=== PATIENT | male | born 1955 | race Caucasian/White ===

== ENCOUNTER 2016-12-11 09:51 | Day surgery (SDC) | payer MEDICAID ==
[2016-12-09 14:27] VITALS: BMI 33.3
[~2016-12-11 09:51] MED LIST: LACTATED RINGERS 1,000 ML IV SCH
[2016-12-11 10:46] VITALS: TEMP 98.1
[2016-12-11] MEDS ORDERED: LIDOCAINE 1% 20 ML VIAL (10MG/ML) FOR IV START INTRADERMA ONE (10:56)
[2016-12-11] MEDS ORDERED: PROPOFOL 10 MG/ML 20 ML VIAL IV ONE (11:14)
--- NOTE | 2016-12-11 11:36 | P.GSHP ---
History of Present Illness H&P Date: 12/11/16 Chief Complaint: Colon cancer screening Patient today for colonoscopy. His last one was approximately 10 years ago. No rectal bleeding or melena. No family history of colon cancer. Past Medical History Past Medical History: No Reported History History of Any Multi-Drug Resistant Organisms: None Reported Additional Past Surgical History / Comment(s): Had surgery at 2 yrs old because he swallowed a robertson. Past Anesthesia/Blood Transfusion Reactions: No Reported Reaction Past Psychological History: No Psychological Hx Reported Smoking Status: Former smoker Past Alcohol Use History: Occasional Additional Past Alcohol Use History / Comment(s): Smoked <1PPD for 10-15 yrs, quit 20 yrs ago. Past Drug Use History: None Reported - Past Family History Mother Additional Family Medical History / Comment(s): Heart Disease Father Additional Family Medical History / Comment(s): Heart Disease Medications and Allergies Home Medications Medication Instructions Recorded Confirmed Type Aspirin [Adult Low Dose Aspirin EC] 81 mg PO DAILY 12/09/16 12/11/16 History Allergies Allergy/AdvReac Type Severity Reaction Status Date / Time No Known Allergies Allergy Verified 12/11/16 10:41 Surgical - Exam Vital Signs Temp Pulse Resp BP Pulse Ox 98.1 F 59 L 16 154/90 98 12/11/16 10:37 12/11/16 10:37 12/11/16 10:37 12/11/16 10:37 12/11/16 10:37 Physical exam: General: Well-developed, well-nourished HEENT: Normocephalic, sclerae nonicteric Abdomen: Nontender, nondistended Extremities: No edema Neuro: Alert and oriented Assessment and Plan (1) Colon cancer screening Narrative/Plan: Will proceed with colonoscopy at this time. Status: Acute
--- NOTE | 2016-12-11 11:37 | P.PCN ---
Date of Procedure: 12/11/16 Procedure(s) Performed: PREOPERATIVE DIAGNOSIS: Colon cancer screening POSTOPERATIVE DIAGNOSIS: Normal PROCEDURE: Colonoscopy ANESTHESIA: MAC SURGEON: Abraham Paredes M.D. SPECIMENS: None ENDOSCOPIC PROCEDURE: The patient was placed on the endoscopy table in the left decubitus position. The Olympus colonoscope was inserted into the anus and passed under direct visualization to the base of the cecum. The appendiceal orifice was visualized. From that point the scope was slowly withdrawn inspecting all surfaces carefully. There were no neoplastic inflammatory or polypoid lesions throughout the cecum, ascending, transverse, descending, sigmoid and rectum. There was no diverticulosis noted. Digital rectal examination was normal. The patient was taken to the recovery room in stable condition per anesthesia guidelines. RECOMMENDATIONS: Increase fiber. Follow colonoscopy in 10 years.
[2016-12-11 12:17] VITALS: BP 116/70; PULSE 49; RESP 16
== END 2016-12-11 12:31 | disposition home or self-care (01) ==
LOC: ORWHC2ENDO 09:51
PROVIDERS: ATTEND Surgery
DX: Z12.11 Encounter for screening for malignant neoplasm of colon (principal); E66.9 Obesity, unspecified; Z68.33 Body mass index [BMI] 33.0-33.9, adult; Z79.82 Long term (current) use of aspirin; Z87.891 Personal history of nicotine dependence

== ENCOUNTER → 2017-10-30 | Outpatient (CLI) | payer MEDICAID ==
[2017-10-30 07:54] LABS: HCT 51.7 % (39.0-53.0); HGB 16.7 gm/dL (13.0-17.5); MCH 29.2 pg (25.0-35.0); MCHC 32.2 g/dL (31.0-37.0); MCV 90.7 fL (80.0-100.0); Mean Platelet Volume 7.1; Platelet Count 271 k/uL (150-450); RDW 12.8 % (11.5-15.5); WBC 5.2 k/uL (3.8-10.6)
[2017-10-30 07:57] LABS: Appearance,Urine Clear (Clear); Bilirubin,Urine Negative (Negative); Blood,Urine Negative (Negative); Color,Urine Yellow; Glucose,Urine (UA) Negative (Negative); Ketones,Urine Negative (Negative); Leukocyte Esterase,Urine Negative (Negative); Nitrite,Urine Negative (Negative); Protein,Urine Negative (Negative); Urobilinogen,Urine <2.0 mg/dL (<2.0)
[2017-10-30 09:55] LABS: ALT 28 U/L (21-72); AST 31 U/L (17-59); Albumin 4.4 g/dL (3.5-5.0); Alkaline Phosphatase 82 U/L (38-126); Anion Gap 10 mmol/L; Blood Urea Nitrogen 22 mg/dL (9-20); Calcium 9.8 mg/dL (8.4-10.2); Carbon Dioxide 31 mmol/L (22-30); Chloride 103 mmol/L (98-107); Cholesterol 233 mg/dL (<200); Glucose 98 mg/dL (74-99); HDL Cholesterol 64 mg/dL (40-60); LDL Cholesterol,Calculated 155 mg/dL (0-99); Potassium 4.8 mmol/L (3.5-5.1); Sodium 144 mmol/L (137-145); Total Bilirubin 0.5 mg/dL (0.2-1.3); Total Protein 7.3 g/dL (6.3-8.2); Triglycerides 68 mg/dL (<150)
[2017-10-30 10:25] LABS: Prostate Specific Antigen 1.67 ng/mL (0.00-4.00)
== END | disposition home or self-care (01) ==
LOC: LABWHC1 07:18
PROVIDERS: ATTEND Family Medicine
DX: Z00.01 Encounter for general adult medical examination with abnormal findings (principal)
CPT/HCPCS: 36415; 80053; 80061; 81003; 84153; 85027

== ENCOUNTER 2018-09-07 16:15 | Inpatient (IN) | payer MEDICAID ==
[2018-09-07] MEDS ORDERED: MORPHINE SULFATE 2 MG/ML SYRINGE IVP PRN (16:59)
--- NOTE | 2018-09-07 16:59 | ED ---
General Adult HPI - General Chief complaint: Extremity Injury, Upper Stated complaint: Fall Source: patient Mode of arrival: ambulatory Limitations: no limitations - History of Present Illness Initial comments: Dictation was produced using [employer] dictation software. please excuse any grammatical, word or spelling errors. Chief Complaint: 62-year-old male presents with left-sided chest pain. History of Present Illness: Patient is a 62-year-old male with left- sided chest pain. Patient was on a ladder pain upper repeat in time for the when his ladder began to topple. Patient states that the ladder fell sideways onto the ground. He fell onto his left side contusing his left upper arm and left lateral chest. Patient stood up immediately. He did suffer some abrasions to his left chest. Patient got up immediately and was brought to the emergency department. Patient has significant tenderness to his left lateral chest. Pain is exacerbated with inspiration and palpation to the left lateral chest. Patient denies any abdominal pain. Patient takes aspirin however doesn't take any other medications. Denies any ALLERGIES. He denies any abdominal pain. The ROS documented in this emergency department record has been reviewed and confirmed by me. Those systems with pertinent positive or negative responses have been documented in the HPI. All other systems are other negative and/or noncontributory. - Related Data Home Medications Medication Instructions Recorded Confirmed Aspirin [Adult Low Dose Aspirin EC] 81 mg PO DAILY 12/09/16 09/07/18 Allergies Allergy/AdvReac Type Severity Reaction Status Date / Time No Known Allergies Allergy Verified 09/07/18 16:38 Review of Systems ROS Statement: Those systems with pertinent positive or pertinent negative responses have been documented in the HPI. ROS Other: All systems not noted in ROS Statement are negative. Past Medical History Past Medical History: No Reported History History of Any Multi-Drug Resistant Organisms: None Reported Additional Past Surgical History / Comment(s): Had surgery at 2 yrs old because he swallowed a robertson. Past Anesthesia/Blood Transfusion Reactions: No Reported Reaction Past Psychological History: No Psychological Hx Reported Smoking Status: Former smoker Past Alcohol Use History: Occasional Past Drug Use History: None Reported - Past Family History Mother Additional Family Medical History / Comment(s): Heart Disease Father Additional Family Medical History / Comment(s): Heart Disease General Exam - General Exam Comments Initial Comments: PHYSICAL EXAM: General Impression: Alert and oriented x3, not in acute distress HEENT: Normocephalic atraumatic, extra-ocular movements intact, pupils equal and reactive to light bilaterally, mucous membranes moist. Cardiovascular: Heart regular rate and rhythm, S1&S2 audible, no murmurs, rubs or gallops Chest: Bilateral breath sounds, abrasion to the left lateral chest Abdomen: Bowel sounds present, abdomen soft, non-tender, non-distended, no organomegaly Musculoskeletal: Pulses present and equal in all extremities, no peripheral edema Motor: Power 5/5 bilaterally, no focal deficits noted Neurological: CN II-XII grossly intact, no focal motor or sensory deficits noted Skin: Half a centimeter superficial abrasion to the left finger Psych: Normal affect and mood Limitations: no limitations Course Vital Signs 09/07/18 09/07/18 16:16 18:42 Temperature 97.4 F L Pulse Rate 59 L 84 Respiratory 18 24 Rate Blood Pressure 154/96 144/108 O2 Sat by Pulse 99 Oximetry Medical Decision Making - Medical Decision Making ED course: 62-year-old male with severe left upper arm and left chest contusion status post fall off ladder. The ladder was allegedly approximately 4 feet. Vital signs upon arrival shows findings within acceptable limits. There is strong clinical concern of left rib fractures.There is strong clinical suspicion of traumatic thoracic injury. Laboratory evaluation obtained. CBC unremarkable, coag panel pending. Metabolic panel negative, urinalysis negative. Chest x-ray was obtained demonstrating rib fractures however no pneumothorax or effusion noted initially. Computed tomography scan of the chest abdomen and pelvis was obtained showing multiple comminuted left-sided rib fractures with flail chest. There is mild hemothorax. Hemothorax measures approximately 25%. Much medical injury identified below the diaphragm. Discussed patient case with trauma surgeon who requests the patient be put intensive care unit. Discussed patient case with network desktop support specialist who is willing to accept the patient to the ICU. Discussed patient case with cardiothoracic who is aware of patient. None of the consultants recommend putting a chest tube at this time. Patient given lidocaine patch and given IV analgesia. Anesthesia to be consulted for possible rib block. - Lab Data Result diagrams: 09/07/18 17:20 09/07/18 17:20 Lab Results 09/07/18 09/07/18 09/07/18 Range/Units 17:20 17:20 17:20 WBC 8.6 (3.8-10.6) k/uL RBC 5.42 (4.30-5.90) m/uL Hgb 15.2 (13.0-17.5) gm/dL Hct 47.9 (39.0-53.0) % MCV 88.4 (80.0-100.0) fL MCH 28.1 (25.0-35.0) pg MCHC 31.7 (31.0-37.0) g/dL RDW 12.3 (11.5-15.5) % Plt Count 319 (150-450) k/uL Neutrophils % 71 % Lymphocytes % 21 % Monocytes % 5 % Eosinophils % 1 % Basophils % 0 % Neutrophils # 6.1 (1.3-7.7) k/uL Lymphocytes # 1.8 (1.0-4.8) k/uL Monocytes # 0.5 (0-1.0) k/uL Eosinophils # 0.1 (0-0.7) k/uL Basophils # 0.0 (0-0.2) k/uL Sodium 140 (137-145) mmol/L Potassium 4.7 (3.5-5.1) mmol/L Chloride 103 (98-107) mmol/L Carbon Dioxide 29 (22-30) mmol/L Anion Gap 8 mmol/L BUN 18 (9-20) mg/dL Creatinine 0.82 (0.66-1.25) mg/dL Est GFR (CKD-EPI)AfAm >90 (>60 ml/min/1.73 sqM) Est GFR (CKD-EPI)NonAf >90 (>60 ml/min/1.73 sqM) Glucose 101 H (74-99) mg/dL Calcium 9.4 (8.4-10.2) mg/dL Urine Color Yellow Urine Appearance Clear (Clear) Urine pH 5.0 (5.0-8.0) Ur Specific [place] 1.019 (1.001-1.035) Urine Protein Negative (Negative) Urine Glucose (UA) Negative (Negative) Urine Ketones Negative (Negative) Urine Blood Negative (Negative) Urine Nitrite Negative (Negative) Urine Bilirubin Negative (Negative) Urine Urobilinogen <2.0 (<2.0) mg/dL Ur Leukocyte Esterase Negative (Negative) Disposition Clinical Impression: Rib fractures, Hemothorax Disposition: ADMITTED IP TO THIS HOSP Condition: Critical Referrals: Srinivasa Braden MD [Primary Care Provider] - 1-2 days Decision Time: 19:14
[2018-09-07] MEDS ORDERED: LIDOCAINE 5% PATCH TOPICAL STA (17:00)
--- NOTE | 2018-09-07 17:22 | XR ---
EXAMINATION TYPE: XR chest 1V DATE OF EXAM: 09/07/2018 COMPARISON: 06/22/2009 HISTORY: Left rib pain TECHNIQUE: Single frontal view of the chest is obtained. FINDINGS: Heart and mediastinum are within normal limits. Lungs are clear of infiltrate. There is slight increased density over the left lower lateral lung field consistent with new pleural thickening. There is fracture of the left sixth rib and probably the fifth rib. There are old right u pper posterior healed rib fractures. There is no sign of a pneumothorax. Trachea is midline. Costophr enic angles are clear. IMPRESSION: Left rib acute fractures. There is probably some pleural thickening also.
--- NOTE | 2018-09-07 17:24 | XR ---
EXAMINATION TYPE: XR humerus LT DATE OF EXAM: 09/07/2018 COMPARISON: NONE HISTORY: Arm pain. Fall. TECHNIQUE: 4 views FINDINGS: There is some spurring at the medial humeral condyle. I see no fracture nor dislocation. Sh oulder joint appears intact. IMPRESSION: No acute abnormality of the left humerus. No fracture seen.
[2018-09-07 18:23] LABS: Basophils % (A) 0 %; Eosinophils # (A) 0.1 k/uL (0-0.7); Eosinophils % (A) 1 %; HCT 47.9 % (39.0-53.0); HGB 15.2 gm/dL (13.0-17.5); Lymphocytes # (A) 1.8 k/uL (1.0-4.8); Lymphocytes % (A) 21 %; MCH 28.1 pg (25.0-35.0); MCHC 31.7 g/dL (31.0-37.0); MCV 88.4 fL (80.0-100.0); Monocytes # (A) 0.5 k/uL (0-1.0); Monocytes % (A) 5 %; Neutrophils # (A) 6.1 k/uL (1.3-7.7); Neutrophils % (A) 71 %; Platelet Count 319 k/uL (150-450); RBC 5.42 m/uL (4.30-5.90); RDW 12.3 % (11.5-15.5); WBC 8.6 k/uL (3.8-10.6)
[2018-09-07 18:34] LABS: Anion Gap 8 mmol/L; Blood Urea Nitrogen 18 mg/dL (9-20); Calcium 9.4 mg/dL (8.4-10.2); Carbon Dioxide 29 mmol/L (22-30); Chloride 103 mmol/L (98-107); Glucose 101 mg/dL (74-99); Potassium 4.7 mmol/L (3.5-5.1); Sodium 140 mmol/L (137-145)
[2018-09-07 18:49] LABS: Appearance,Urine Clear (Clear); Bilirubin,Urine Negative (Negative); Blood,Urine Negative (Negative); Color,Urine Yellow; Glucose,Urine (UA) Negative (Negative); Ketones,Urine Negative (Negative); Leukocyte Esterase,Urine Negative (Negative); Nitrite,Urine Negative (Negative); Protein,Urine Negative (Negative); Specific Gravity,Urine 1.019 (1.001-1.035); Urobilinogen,Urine <2.0 mg/dL (<2.0)
--- NOTE | 2018-09-07 19:01 | CT ---
EXAMINATION TYPE: CT ChestAbdPelvis w con DATE OF EXAM: 09/07/2018 COMPARISON: Chest pain. Fall. HISTORY: pt fall, lt side landing on ladder CT DLP: 1085.7 mGycm Automated exposure control for dose reduction was used. CONTRAST: CT scan of the chest, abdomen and pelvis is performed without Oral Contrast and with IV Contrast, pat ient injected with 100 mL of Isovue 300. FINDINGS: There is left pleural effusion. There is soft tissue air around the left posterior lateral chest wall . There are fractures of the posterior left side 9 and 8 and 7 and 6 ribs. I see no pneumothorax. The re is tiny amount of soft tissue air associated with the rib fractures. This appears outside of the p arietal pleura. Fractures are mostly comminuted. Ribs are broken more than one place and consistent w ith flail chest. There is also fractures of the left lateral fourth fifth sixth ribs. The thoracic sp ine is intact. I see no compression fracture. Trachea is midline. Thoracic aorta appears intact witho ut evidence of aneurysm or dissection. There are no hilar masses. There is no mediastinal adenopathy. There is 1.5 cm cyst in the left lobe of the liver. Gallbladder appears normal. Bile ducts are not di lated. The spleen appears intact. There is no evidence of pancreatic mass. There is no adrenal mass. Kidneys show satisfactory contrast opacification. There is no hydronephrosi s. Bladder distends smoothly. There is prosthetic calcification. There is no inguinal hernia. There i s no free fluid in the pelvis. Appendix appears normal. I see no intestinal wall thickening. There ar e no dilated loops. There is no mesenteric edema. There are a few mesenteric lymph nodes that measure up to 1 cm. Lumbar spine is intact. Bony pelvis is intact. IMPRESSION: Multiple comminuted left-sided rib fractures consistent with flail chest. Mild hemothorax . Soft tissue air outside of the pleura consistent with a laceration. No pneumothorax seen. Hemothora x is approximate 25%. No evidence of traumatic injury below the diaphragm. This exam was discussed [facility] ER physician at 7:00 PM.
[2018-09-07] MEDS ORDERED: ACETAMINOPHEN TAB 325 MG TAB PO PRN (19:09)
[2018-09-07] MEDS ORDERED: MORPHINE SULFATE 4 MG/ML SYRINGE IV PRN (19:09)
[2018-09-07] MEDS ORDERED: NALOXONE 0.4 MG/ML 1 ML VIAL IV PRN (19:09)
[2018-09-07] MEDS ORDERED: SODIUM CHLORIDE 0.9% 1,000 ML IV STA (19:20)
[2018-09-07] MEDS: SODIUM CHLORIDE 0.9% 1,000 ML IV SCH (19:32)
--- NOTE | 2018-09-07 20:55 | XR ---
EXAMINATION TYPE: XR chest 1V DATE OF EXAM: 09/07/2018 COMPARISON: Today HISTORY: Chest pain TECHNIQUE: Single frontal view of the chest is obtained. FINDINGS: There is some mild infiltrate in the left lower lobe. There is no heart failure. Heart siz e is fairly normal. There are chest leads. IMPRESSION: Increasing left lower lobe mild infiltrate compared to exam earlier today 2 hours ago.
[2018-09-07] MEDS: HYDROcodone/APAP 5-325MG 1 EACH TAB PO PRN (20:59)
[2018-09-07 22:10] LABS: Glucose,Whole Blood 121 mg/dL (75-99)
[2018-09-07 22:35] VITALS: BMI 32.7
[2018-09-07] MEDS: FAMOTIDINE 20 MG/2 ML VIAL IV SCH (22:43)
[2018-09-08] MEDS: HYDROcodone/APAP 5-325MG 1 EACH TAB PO PRN ×5 (00:51→23:31)
[2018-09-08] MEDS: SODIUM CHLORIDE 0.9% 1,000 ML IV SCH ×3 (04:57→23:35)
[2018-09-08 05:44] LABS: Basophils % (A) 0 %; Eosinophils % (A) 0 %; HCT 40.9 % (39.0-53.0); HGB 13.2 gm/dL (13.0-17.5); Lymphocytes # (A) 1.6 k/uL (1.0-4.8); Lymphocytes % (A) 18 %; MCH 29.1 pg (25.0-35.0); MCHC 32.4 g/dL (31.0-37.0); MCV 89.7 fL (80.0-100.0); Mean Platelet Volume 7.1; Monocytes # (A) 0.7 k/uL (0-1.0); Monocytes % (A) 8 %; Neutrophils # (A) 6.4 k/uL (1.3-7.7); Neutrophils % (A) 72 %; Platelet Count 276 k/uL (150-450); RBC 4.56 m/uL (4.30-5.90); RDW 12.3 % (11.5-15.5); WBC 8.8 k/uL (3.8-10.6)
[2018-09-08 06:02] LABS: Anion Gap 7 mmol/L; Blood Urea Nitrogen 21 mg/dL (9-20); Calcium 8.4 mg/dL (8.4-10.2); Carbon Dioxide 26 mmol/L (22-30); Chloride 105 mmol/L (98-107); Glucose 112 mg/dL (74-99); Phosphorus 4.7 mg/dL (2.5-4.5); Potassium 4.8 mmol/L (3.5-5.1); Sodium 138 mmol/L (137-145)
--- NOTE | 2018-09-08 08:26 | XR ---
EXAMINATION TYPE: XR chest 1V DATE OF EXAM: 09/08/2018 COMPARISON: 09/07/2018 HISTORY: Pain TECHNIQUE: Single frontal view of the chest is obtained. FINDINGS: Chronic rib cage deformities noted bilaterally. There are small bilateral effusions greate r on the left is a less than percent pneumothorax stable. IMPRESSION: 1. Less than 5% left apical pneumothorax with left-sided consolidation and pleural effusion. Recently noted rib fractures are again seen.
[2018-09-08] MEDS: FAMOTIDINE 20 MG/2 ML VIAL IV SCH (08:53)
--- NOTE | 2018-09-08 09:54 | P.GSCN ---
History of Present Illness Consult date: 09/08/18 Reason for Consult: Left-sided rib fractures, possible flail chest, surgical recommendations. Requesting physician: Mat Puente History of present illness: This is a 62-year-old active gentleman who follows with Dr. Ruel Braden on an outpatient basis. He has no significant previous medical history except former tobacco dependence and family history of heart disease. Apparently he had been up on a ladder hanging [place] lights when he fell approximately 4 feet off the ground onto his left side. He denies hitting his head and was able to stand up immediately. He complained of pain to his left arm and left lateral chest wall with no other complaints. He reported to the emergency room where a chest x-ray was completed demonstrating left acute rib fractures with pleural thickening. CT of the chest, abdomen and pelvis was completed as well demonstrating comminuted fractures of the posterior left sided 6 through ninth ribs and fourth through sixth left lateral ribs, as well as 25% hemothorax. Per the radiologist read his ribs were fractured in more than one place which they felt was consistent with flail chest. In addition he had a humerus x-ray which demonstrated no fracture. The patient was admitted to the intensive care unit for close monitoring and treatment. Dr. Hayes from cardiothoracic surgery was consulted regarding the patient's rib fractures and treatment of possible flail chest. Review of Systems Review of systems was completed and was negative except as noted. Rates pain at a 3/10 without movement, with deep inspiration or movement pain is slightly worse but well controlled with current medication regimen. - Cardiovascular Cardiovascular Comment(s): Left lateral chest pain is worse with deep inspiration. Reports as per HPI, Reports chest pain Past Medical History Past Medical History: No Reported History History of Any Multi-Drug Resistant Organisms: None Reported Additional Past Surgical History / Comment(s): Had surgery at 2 yrs old because he swallowed a robertson. Past Anesthesia/Blood Transfusion Reactions: No Reported Reaction Past Psychological History: No Psychological Hx Reported Smoking Status: Former smoker Past Alcohol Use History: Occasional Additional Past Alcohol Use History / Comment(s): Smoked <1PPD for 10-15 yrs, quit 20 yrs ago. Past Drug Use History: None Reported - Past Family History Mother Additional Family Medical History / Comment(s): Heart Disease Father Additional Family Medical History / Comment(s): Heart Disease Medications and Allergies Home Medications Medication Instructions Recorded Confirmed Type Aspirin [Adult Low Dose Aspirin EC] 81 mg PO DAILY 12/09/16 09/07/18 History Allergies Allergy/AdvReac Type Severity Reaction Status Date / Time No Known Allergies Allergy Verified 09/07/18 16:38 Surgical - Exam Vital Signs Temp Pulse Resp BP 97.4 F L 59 L 18 154/96 09/07/18 16:16 09/07/18 16:16 09/07/18 16:16 09/07/18 16:16 - General well developed, well nourished, no distress - Eyes PERRL, normal ocular movement - ENT no hearing loss - Neck no masses, no bruits - Respiratory Lungs sounds clear bilaterally but slightly diminished on the left side. Respirations even, nonlabored. Currently on 2 L nasal cannula oxygen saturation 97%. Able to achieve 1000 mL on his incentive spirometry. Left chest wall does appear slightly swollen. There is no paradoxical movement of the chest with inspiration or coughing. - Cardiovascular S1, S2 present. Regular rate and rhythm, sinus rhythm on telemetry. Palpable peripheral pulses bilaterally. No extremity edema present. No calf pain or tenderness noted. - Abdomen Abdomen: soft, non tender, bowel sounds - Genitourinary Deferred - Rectum Deferred - Integumentary Abrasions present to the left chest. no rash, no growths - Neurologic normal coordination, normal sensation - Psychiatric oriented to time, oriented to person, oriented to place, speech is normal, memory intact Results - Labs 09/08/18 04:57 09/08/18 04:57 Abnormal Lab Results - Last 24 Hours (Table) 09/07/18 09/07/18 09/08/18 Range/Units 17:20 21:58 04:57 BUN 21 H (9-20) mg/dL Glucose 101 H 112 H (74-99) mg/dL POC Glucose (mg/dL) 121 H (75-99) mg/dL Phosphorus 4.7 H (2.5-4.5) mg/dL Diabetes panel 09/07/18 09/08/18 Range/Units 17:20 04:57 Sodium 140 138 (137-145) mmol/L Potassium 4.7 4.8 (3.5-5.1) mmol/L Chloride 103 105 (98-107) mmol/L Carbon Dioxide 29 26 (22-30) mmol/L BUN 18 21 H (9-20) mg/dL Creatinine 0.82 0.73 (0.66-1.25) mg/dL Glucose 101 H 112 H (74-99) mg/dL Calcium 9.4 8.4 (8.4-10.2) mg/dL Calcium panel 09/07/18 09/08/18 Range/Units 17:20 04:57 Calcium 9.4 8.4 (8.4-10.2) mg/dL Phosphorus 4.7 H (2.5-4.5) mg/dL Pituitary panel 09/07/18 09/08/18 Range/Units 17:20 04:57 Sodium 140 138 (137-145) mmol/L Potassium 4.7 4.8 (3.5-5.1) mmol/L Chloride 103 105 (98-107) mmol/L Carbon Dioxide 29 26 (22-30) mmol/L BUN 18 21 H (9-20) mg/dL Creatinine 0.82 0.73 (0.66-1.25) mg/dL Glucose 101 H 112 H (74-99) mg/dL Calcium 9.4 8.4 (8.4-10.2) mg/dL Adrenal panel 09/07/18 09/08/18 Range/Units 17:20 04:57 Sodium 140 138 (137-145) mmol/L Potassium 4.7 4.8 (3.5-5.1) mmol/L Chloride 103 105 (98-107) mmol/L Carbon Dioxide 29 26 (22-30) mmol/L BUN 18 21 H (9-20) mg/dL Creatinine 0.82 0.73 (0.66-1.25) mg/dL Glucose 101 H 112 H (74-99) mg/dL Calcium 9.4 8.4 (8.4-10.2) mg/dL - Imaging Chest x-ray: report reviewed, image reviewed CT scan - chest: report reviewed, image reviewed Assessment and Plan (1) Tobacco dependence in remission Current Visit: No Status: Resolved Code(s): F17.201 - NICOTINE DEPENDENCE, UNSPECIFIED, IN REMISSION SNOMED Code(s): 821809314 (2) Hemothorax Current Visit: Yes Status: Acute Code(s): J94.2 - HEMOTHORAX SNOMED Code(s ): 56006564 (3) Rib fractures Current Visit: Yes Status: Acute Code(s): S22.39XA - FRACTURE OF ONE RIB, UNSP SIDE, INIT FOR CLOS FX SNOMED Code(s): 42212014 Plan: The patient was seen and examined at the bedside with Dr. Nguyen. Chart/ diagnostics were reviewed. At this point the patient is in no distress, his respirations are even and nonlabored, he is achieving 1000 mL on his incentive spirometry and his oxygen saturation is in the high 90s on 2 L nasal cannula. He states his pain is well controlled with current medication regimen. There is no paradoxical movement of the chest wall. His trachea is midline. He does have slight edema to the left chest wall which should be monitored. We have asked radiology to add rib reconstruction to his CT scan. At this time no surgical intervention is warranted. The patient may be transferred out of the ICU from our standpoint. Pain control per primary care service/trauma service. Encourage incentive spirometry 10 times every hour while awake. More recommendations to follow based on patient's progress and symptomatology as well as rib reconstruction on CT scan. Thank you for this consult. We will continue to follow with you. Time with Patient: Greater than 30
--- NOTE | 2018-09-08 11:52 | P.CNPUL ---
History of Present Illness Consult date: 09/08/18 Reason for consult: chest pain History of present illness: 3-year-old male patient is well-known to me as the patient works as a x-ray tech here in the hospital. The patient was installing some light on a ladder and he fell and he landed on his left side and chest. He did not lose any consciousness. No dizziness. No altered mentation. No trauma to the head. He presented emergency department and a chest x-ray showed left-sided rib fractures in addition to left pleural thickening and effusion. CAT scan of the chest abdomen and pelvis was done and showed a comminuted fracture of the posterior left sided ribs 6 through ninth rib and there was also fractured within the fourth and the sixth rib laterally in addition to a very small left- sided pleural effusion probably hemothorax. No evidence of any pneumothorax. No abdominal findings on the CAT scan of the abdomen and pelvis. The patient is currently in intensive care unit. The patient using incentive spirometer. Pain scale is 3/10 and the patient is well-controlled on [place] orally. He is using incentive spirometer. No hemoptysis. No pleurisy. There is a large bruise in his obtain interstitial over the left lateral chest area extending posteriorly inside of the trauma along with some swelling. Family is at the bedside. He has no complaints. Review of Systems Constitutional: Denies chills, Denies fever Eyes: denies blurred vision, denies bulging eye, denies decreased vision Ears: deny: decreased hearing, ear discharge, earache, tinnitus Ears, nose, mouth and throat: Reports as per HPI Cardiovascular: Reports chest pain Respiratory: Reports dyspnea Gastrointestinal: Denies abdominal pain, Denies diarrhea, Denies nausea, Denies vomiting Genitourinary: Reports as per HPI Musculoskeletal: Reports as per HPI Musculoskeletal: absent: ankle pain, ankle stiffness, ankle swelling Integumentary: Denies pruritus, Denies rash Neurological: Reports as per HPI Psychiatric: Reports as per HPI Endocrine: Reports as per HPI Hematologic/Lymphatic: Reports as per HPI Allergic/Immunologic: Reports as per HPI Past Medical History Past Medical History: No Reported History History of Any Multi-Drug Resistant Organisms: None Reported Additional Past Surgical History / Comment(s): Had surgery at 2 yrs old because he swallowed a robertson. Past Anesthesia/Blood Transfusion Reactions: No Reported Reaction Past Psychological History: No Psychological Hx Reported Smoking Status: Former smoker Past Alcohol Use History: Occasional Additional Past Alcohol Use History / Comment(s): Smoked <1PPD for 10-15 yrs, quit 20 yrs ago. Past Drug Use History: None Reported - Past Family History Mother Additional Family Medical History / Comment(s): Heart Disease Father Additional Family Medical History / Comment(s): Heart Disease Medications and Allergies Home Medications Medication Instructions Recorded Confirmed Type Aspirin [Adult Low Dose Aspirin EC] 81 mg PO DAILY 12/09/16 09/07/18 History Allergies Allergy/AdvReac Type Severity Reaction Status Date / Time No Known Allergies Allergy Verified 09/07/18 16:38 Physical Exam Vitals: Vital Signs Temp Pulse Resp BP Pulse Ox 09/08/18 11:00 59 L 18 109/70 97 09/08/18 10:00 56 L 16 121/72 96 09/08/18 09:00 97.9 F 58 L 22 135/79 96 09/08/18 08:00 65 18 114/72 98 09/08/18 07:00 53 L 12 115/67 95 09/08/18 06:00 64 22 134/90 96 09/08/18 05:00 64 14 100/66 97 09/08/18 04:00 97.6 F 55 L 13 100/65 96 09/08/18 03:00 56 L 13 103/68 97 09/08/18 02:00 57 L 13 111/74 95 09/08/18 01:00 60 18 114/74 96 09/08/18 00:30 61 14 114/74 95 09/08/18 00:00 98.4 F 61 16 115/80 95 09/07/18 23:30 68 23 115/80 95 09/07/18 23:00 66 18 140/70 96 09/07/18 22:30 70 19 140/70 96 09/07/18 22:10 98.0 F 77 20 140/70 94 L 09/07/18 21:34 98.1 F 84 18 130/88 97 09/07/18 21:02 19 09/07/18 20:30 84 19 127/88 97 09/07/18 19:47 75 19 122/83 97 09/07/18 19:14 86 21 98/92 97 09/07/18 18:42 84 24 144/108 99 09/07/18 16:16 97.4 F L 59 L 18 154/96 Intake and Output 09/07/18 09/08/18 09/08/18 22:59 06:59 14:59 Intake Total 920 575 Output Total 0 300 175 Balance 0 620 400 Intake: IV 920 575 Sodium Chloride 0.9% 1, 920 575 000 ml @ 115 mls/hr IV . Q8H42M [facility] Rx#:[id number] Output: Urine 0 300 175 Other: Weight 91.9 kg 91.9 kg 91.9 kg General well developed, well nourished, no distress - Eyes PERRL, normal ocular movement - ENT no hearing loss - Neck no masses, no bruits - Respiratory Lungs sounds clear bilaterally but slightly diminished on the left side. Respirations even, nonlabored. Currently on 2 L nasal cannula oxygen saturation 97%. Able to achieve 1000 mL on his incentive spirometry. Left chest wall does appear slightly swollen. There is no paradoxical movement of the chest with inspiration or coughing. - Cardiovascular S1, S2 present. Regular rate and rhythm, sinus rhythm on telemetry. Palpable peripheral pulses bilaterally. No extremity edema present. No calf pain or tenderness noted. - Abdomen Abdomen: soft, non tender, bowel sounds - Genitourinary Deferred - Rectum Deferred - Integumentary Abrasions present to the left chest. There is also subcutaneous hematoma and swelling no rash, no growths - Neurologic normal coordination, normal sensation Results - Laboratory Findings CBC and BMP: 09/08/18 04:57 09/08/18 04:57 Abnormal lab findings: Abnormal Labs 09/07/18 09/07/18 09/08/18 17:20 21:58 04:57 BUN 21 H Glucose 101 H 112 H POC Glucose (mg/dL) 121 H Phosphorus 4.7 H - Diagnostic Findings Chest x-ray: image reviewed CT scan - chest: image reviewed Assessment and Plan Plan: Assessment 1 traumatic left-sided rib fractures, secondary to a fall 2 traumatic small left-sided hemothorax 3 chest wall pain secondary to above 4 acute hypoxic respiratory failure secondary to above Plan The patient was seen and examined. He is doing well. Pain is under good control. He is on [place] for pain control. Continue using the incentive spirometer. Daily chest x-rays. No need for any chest tube insertion for any immediate surgical intervention at this point in time. His chest is not flaking. He is doing well. He is hemodynamically stable. We'll continue to follow.
--- NOTE | 2018-09-08 14:04 | P.GSHP ---
History of Present Illness H&P Date: 09/08/18 62-year-old male who presented to the emergency room on the day of the event when patient reportedly fell from a ladder approximately 4 feet off the ground landing on his left side. Patient denies losing consciousness. Denies any numbness had. Stated he was able to stand up immediately after the incident. Did report noting having significant pain involving his left arm the left lateral chest wall. In the emergency room chest x-ray was completed did show left acute rib fracture with pleural thickening. CAT scan of the chest abdomen and pelvis was obtained. Reviewing the report showed comminuted fractures of the posterior left side sixth through ninth ribs, 4 through 6 rib left lateral with a 25% pneumothorax. The humerus x-ray showed no fracture. Radiology indicated the ribs were fractured in more than one place which would be consistent with a flail chest patient has been followed by cardiovascular as well as pulmonary service. At the time of my examination the patient was sitting up in bed able to use the incentive spirometer can achieve the thousand 1500. Currently on room air with a sat of 94-91%. Patient is noted to have a large purple reddish ecchymotic bruise in the left lateral chest with with bruising to the left femoral area left posterior chest wall slightly swollen patient reports a sore the pain is tolerable No significant past medical history, no surgical history - Review of Systems Comment: Essentially unremarkable except as mentioned in the present illness Past Medical History Past Medical History: No Reported History History of Any Multi-Drug Resistant Organisms: None Reported Additional Past Surgical History / Comment(s): Had surgery at 2 yrs old because he swallowed a robertson. Past Anesthesia/Blood Transfusion Reactions: No Reported Reaction Past Psychological History: No Psychological Hx Reported Smoking Status: Former smoker Past Alcohol Use History: Occasional Additional Past Alcohol Use History / Comment(s): Smoked <1PPD for 10-15 yrs, quit 20 yrs ago. Past Drug Use History: None Reported - Past Family History Mother Additional Family Medical History / Comment(s): Heart Disease Father Additional Family Medical History / Comment(s): Heart Disease Medications and Allergies Home Medications Medication Instructions Recorded Confirmed Type Aspirin [Adult Low Dose Aspirin EC] 81 mg PO DAILY 12/09/16 09/07/18 History Allergies Allergy/AdvReac Type Severity Reaction Status Date / Time No Known Allergies Allergy Verified 09/07/18 16:38 Surgical - Exam Vital Signs Temp Pulse Resp BP 97.4 F L 59 L 18 154/96 09/07/18 16:16 09/07/18 16:16 09/07/18 16:16 09/07/18 16:16 GENERAL APPEARANCE: 62-year-old male patient is alert, oriented, in no acute distress. Sitting up in bed VITAL SIGNS: Reviewed HEENT: Head is normocephalic and atraumatic. Pupils are equal and reactive. The nares are patent. Oropharynx is clear without lesions. NECK: Supple without lymphadenopathy. Traches midline. HEART: S1, S2. Regular rate and rhythm. Chest left lateral chest wall moderate amount of bruising noted palpable firm swelling noted LUNGS: No crackles or wheezes are heard. Adequate air movement bilaterally on room air sats greater than 92% able to use the IS achieving 1000 ABDOMEN: Soft, nontender, nondistended with good bowel sounds. No peritoneal signs. No palpable organomegaly or masses. EXTREMITIES: Normal skin color and turgor. No cyanosis, rash, ulceration, clubbing or edema. Radial pedal pulses are 2/4 bilaterally. NEUROLOGICAL: No focal deficits. Strength and sensation are grossly intact. Results - Labs 09/08/18 04:57 09/08/18 04:57 Abnormal Lab Results - Last 24 Hours (Table) 09/07/18 09/07/18 09/08/18 Range/Units 17:20 21:58 04:57 BUN 21 H (9-20) mg/dL Glucose 101 H 112 H (74-99) mg/dL POC Glucose (mg/dL) 121 H (75-99) mg/dL Phosphorus 4.7 H (2.5-4.5) mg/dL Diabetes panel 09/07/18 09/08/18 Range/Units 17:20 04:57 Sodium 140 138 (137-145) mmol/L Potassium 4.7 4.8 (3.5-5.1) mmol/L Chloride 103 105 (98-107) mmol/L Carbon Dioxide 29 26 (22-30) mmol/L BUN 18 21 H (9-20) mg/dL Creatinine 0.82 0.73 (0.66-1.25) mg/dL Glucose 101 H 112 H (74-99) mg/dL Calcium 9.4 8.4 (8.4-10.2) mg/dL Calcium panel 09/07/18 09/08/18 Range/Units 17:20 04:57 Calcium 9.4 8.4 (8.4-10.2) mg/dL Phosphorus 4.7 H (2.5-4.5) mg/dL Pituitary panel 09/07/18 09/08/18 Range/Units 17:20 04:57 Sodium 140 138 (137-145) mmol/L Potassium 4.7 4.8 (3.5-5.1) mmol/L Chloride 103 105 (98-107) mmol/L Carbon Dioxide 29 26 (22-30) mmol/L BUN 18 21 H (9-20) mg/dL Creatinine 0.82 0.73 (0.66-1.25) mg/dL Glucose 101 H 112 H (74-99) mg/dL Calcium 9.4 8.4 (8.4-10.2) mg/dL Adrenal panel 09/07/18 09/08/18 Range/Units 17:20 04:57 Sodium 140 138 (137-145) mmol/L Potassium 4.7 4.8 (3.5-5.1) mmol/L Chloride 103 105 (98-107) mmol/L Carbon Dioxide 29 26 (22-30) mmol/L BUN 18 21 H (9-20) mg/dL Creatinine 0.82 0.73 (0.66-1.25) mg/dL Glucose 101 H 112 H (74-99) mg/dL Calcium 9.4 8.4 (8.4-10.2) mg/dL Assessment and Plan Assessment: Impression Status post fall from a ladder four feet off the ground landing on left side resulting in left acute rib fracture 6 through 9 rib with 4 through 6 on the left lateral rib with a 25% hemothorax Pneumothorax Traumatic left-sided rib fracture secondary to a fall with a left side small 25 % hemothorax Present on admission chest wall pain suspect due to traumatic fall from a ladder 4 feet Present on admission acute hypoxic respiratory failure suspect due to left- sided rib fracture with left side small hemothorax Plan Continue to monitor titrate the O2 keep sats greater than 90% Pain control DVT and GI prophylaxis continue recommendations by pulmonary no need for chest tube insertion or any immediate surgical intervention at this time Will follow with further recommendatios The above impression and plan of care have been discussed and directed by signing physician. Ivon Olguin nurse practitioner acting as scribe for signing physician.
[2018-09-08] MEDS: FAMOTIDINE 20 MG TAB PO SCH (19:32)
[2018-09-09] MEDS: HYDROcodone/APAP 5-325MG 1 EACH TAB PO PRN ×3 (03:27→08:07)
[2018-09-09 08:01] VITALS: BP 144/81; PULSE 68; RESP 16; TEMP 97.4
[2018-09-09] MEDS: FAMOTIDINE 20 MG TAB PO SCH (08:02)
--- NOTE | 2018-09-09 09:26 | XR ---
EXAMINATION TYPE: XR chest 1V portable DATE OF EXAM: 09/09/2018 COMPARISON: Chest x-ray 09/08/2018 HISTORY: Pneumothorax, rib fractures, trauma and pain TECHNIQUE: Single frontal view of the chest is obtained. FINDINGS: Persistent abnormal density in the left lung base. Left hemidiaphragm. Multiple left-sided rib fractures noted. No evident pneumothorax. 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 Patient is rotated which accentuates the heart size. IMPRESSION: Left effusion versus hemothorax with multiple left rib fractures.
[2018-09-09] MEDS ORDERED: HYDROcodone/APAP 5-325MG 1 EACH TAB PO PRN (09:43)
[2018-09-09] MEDS ORDERED: DOCUSATE 100 MG CAP PO SCH (09:45)
[2018-09-09 09:54] LABS: Basophils % (A) 0 %; Eosinophils # (A) 0.1 k/uL (0-0.7); Eosinophils % (A) 1 %; HCT 41.2 % (39.0-53.0); HGB 13.1 gm/dL (13.0-17.5); Lymphocytes # (A) 1.1 k/uL (1.0-4.8); Lymphocytes % (A) 14 %; MCH 28.6 pg (25.0-35.0); MCHC 31.7 g/dL (31.0-37.0); MCV 90.2 fL (80.0-100.0); Mean Platelet Volume 6.6; Monocytes # (A) 0.6 k/uL (0-1.0); Monocytes % (A) 8 %; Neutrophils # (A) 5.5 k/uL (1.3-7.7); Neutrophils % (A) 75 %; Platelet Count 232 k/uL (150-450); RBC 4.57 m/uL (4.30-5.90); RDW 12.4 % (11.5-15.5); WBC 7.4 k/uL (3.8-10.6)
[2018-09-09 09:58] LABS: Anion Gap 8 mmol/L; Blood Urea Nitrogen 16 mg/dL (9-20); Calcium 8.9 mg/dL (8.4-10.2); Carbon Dioxide 27 mmol/L (22-30); Chloride 105 mmol/L (98-107); Glucose 119 mg/dL (74-99); Magnesium 1.9 mg/dL (1.6-2.3); Phosphorus 2.9 mg/dL (2.5-4.5); Potassium 4.4 mmol/L (3.5-5.1); Sodium 140 mmol/L (137-145)
--- NOTE | 2018-09-09 10:40 | P.PN ---
Subjective Progress Note Date: 09/09/18 62-year-old male seen in a follow-up visit currently sitting up in bed appears in no acute distress. Patient continues to report having discomfort in the left rib area when he takes in a deep breath. Currently on room air sats greater than 90%. Can use IS achieved thousand to 1500 states it hurts when he takes in a deep breath. Continues to have purple ecchymotic bruise noted to the left lateral chest wall. Reports that the pain medication effective for pain control did note cardiovascular indicates no surgical intervention no need for a chest tube at this time chest x-ray report reviewed left effusion versus hemothorax with multiple left rib fractures noted no evidence of a pneumothorax Objective - Vital Signs Vital signs: Vital Signs Temp 97.4 F L 09/09/18 07:08 Pulse 68 09/09/18 07:08 Resp 16 09/09/18 07:08 BP 144/81 09/09/18 07:08 Pulse Ox 98 09/09/18 07:08 Intake & Output 09/08/18 09/09/18 09/09/18 18:59 06:59 18:59 Intake Total 1180 Output Total 175 Balance 1005 Weight 91.9 kg Intake: IV 1105 Sodium Chloride 0.9% 1, 1105 000 ml @ 75 mls/hr IV . [id number] [facility] Rx#:[id number] Intake, IV Titration 75 Amount Sodium Chloride 0.9% 1, 75 000 ml @ 75 mls/hr IV . [id number] [facility] Rx#:[id number] Output: Urine 175 Other: # Voids 1 - Exam Physical exam Pleasant 62-year-old male sitting up in bed appearing in no acute distress states it hurts taken a deep breath or move it is improving Lungs posterior diminished left lower lobe greater than the right purple ecchymotic bruise left flank area on room air no conversational dyspnea noted no cough noted no wheezing noted Heart S1-S2 audible regular Abdomen soft nontender nondistended no nausea no vomiting reports no stool for the last 48 hours Extremities no pedal edema noted - Labs CBC & Chem 7: 09/09/18 09:15 09/09/18 09:15 Labs: Abnormal Lab Results - Last 24 Hours (Table) 09/09/18 Range/Units 09:15 Glucose 119 H (74-99) mg/dL Assessment and Plan Assessment: Impression Status post fall from a ladder four feet off the ground landing on left side resulting in left acute rib fracture 6 through 9 rib with 4 through 6 on the left lateral rib with a 25% hemothorax Pneumothorax Traumatic left-sided rib fracture secondary to a fall with a left side small 25 % hemothorax Present on admission chest wall pain suspect due to traumatic fall from a ladder 4 feet Present on admission acute hypoxic respiratory failure suspect due to left- sided rib fracture with left side small hemothorax Repeat chest x-ray September 09 report reviewed indicate left effusion versus hemothorax with multiple left rib fracture no evidence of a pneumothorax Plan Continue to monitor titrate the O2 keep sats greater than 90% Pain control DVT and GI prophylaxis continue recommendations by pulmonary no need for chest tube insertion or any immediate surgical intervention at this time Will follow with further recommendatios Colace as ordered when necessary for constipation The above impression and plan of care have been discussed and directed by signing physician. Ivon Olguin nurse practitioner acting as scribe for signing physician.
--- NOTE | 2018-09-09 13:32 | P.DS ---
Providers Date of admission: 09/07/18 19:09 Expected date of discharge: 09/09/18 Attending physician: Declan Sevilla Consults: 09/07/18 19:15 Consult to Anesthesia Routine Consulting Provider: Anesthesia,Services Consult Reason/Comments: rib block 09/07/18 19:38 Consult Physician Routine Consulting Provider: Kodak Oneal Consult Reason/Comments: icu patient Do you want consulting provider notified?: Already Contacted 09/07/18 19:39 Consult Physician Routine Consulting Provider: Elvin Hayes Consult Reason/Comments: rib fractures Do you want consulting provider notified?: Yes Primary care physician: [facility] Course: 62-year-old gentleman who presented on the day of admission to the emergency room after patient had a incident of falling from a ladder approximately 4 feet off the ground landing on his left side was attempting to hang [facility]. Patient stated he did not lose consciousness.. Denies any dizziness or lightheadedness. Stated after the incident he was able to stand up. Patient reportedly was experiencing some left lateral chest wall pain hard to take a deep breath. Came into the emergency room had x-rays obtained that showed a left rib fracture with pleural thickening. CAT scan showed left rib fractures 6 through the ninth on the left side 4-6 on the left lateral the 25% pneumothorax. The left humerus was negative for fracture. Patient was seen by cardiovascular surgery. They indicated there was no need to do a chest tube at this time and no surgical intervention at this time. Pulmonary consultation was obtained as well. Patient was able to have the oxygen titrated down to keep the sats greater than 90. Was able to use the incentive spirometer and achieved thousand patient had sustained a large purple reddish ecchymotic bruise after the fall involving the left lateral chest wall. On the day of discharge pulmonary and cardiovascular surgery indicated the patient is appropriate to be discharged home Impression discharge diagnosis Status post fall from a ladder four feet off the ground landing on left side resulting in left acute rib fracture 6 through 9 rib with 4 through 6 on the left lateral rib with a 25% hemothorax Pneumothorax Traumatic left-sided rib fracture secondary to a fall with a left side small 25 % hemothorax Present on admission chest wall pain suspect due to traumatic fall from a ladder 4 feet Present on admission acute hypoxic respiratory failure suspect due to left- sided rib fracture with left side small hemothorax Repeat chest x-ray September 09 report reviewed indicate left effusion versus hemothorax with multiple left rib fracture no evidence of a pneumothorax The above impression and plan of care have been discussed and directed by signing physician. Ivon Olguin nurse practitioner acting as scribe for signing physician. Patient Condition at Discharge: Critical Plan - Discharge Summary New Discharge Prescriptions: New Docusate [Colace] 100 mg PO BID PRN #60 capsule PRN Reason: Constipation Acetaminophen Tab [Tylenol] 650 mg PO Q4HR PRN tab PRN Reason: Fever And/Or Mild Pain Docusate [Colace] 100 mg PO BID cap HYDROcodone/APAP 7.5-325MG [[place] 7.5-325] 1 tab PO Q4H PRN 3 Days #18 tab PRN Reason: Moderate Breakthrough Pain Continue Aspirin [Adult Low Dose Aspirin EC] 81 mg PO DAILY Discharge Medication List Aspirin [Adult Low Dose Aspirin EC] 81 mg PO DAILY 12/09/16 [History] Acetaminophen Tab [Tylenol] 650 mg PO Q4HR PRN tab 09/09/18 [Rx] Docusate [Colace] 100 mg PO BID cap 09/09/18 [Rx] Docusate [Colace] 100 mg PO BID PRN #60 capsule 09/09/18 [Rx] HYDROcodone/APAP 7.5-325MG [[place] 7.5-325] 1 tab PO Q4H PRN 3 Days #18 tab 09/09 [Rx] Follow up Appointment(s)/Referral(s): Srinivasa Braden MD [Primary Care Provider] - 1-2 days [facility] [NON-STAFF] - 1 Week Kodak Oneal MD [STAFF PHYSICIAN] - 1 Week Patient Instructions/Handouts: Rib Fracture (DC) Activity/Diet/Wound Care/Special Instructions: activity as tolerated resume regular diet oxygen at 2 liters May take [id number] Tylenol or Motrin every 4-6 hours as needed for pain Discharge Disposition: HOME SELF-CARE
--- NOTE | 2018-09-09 16:38 | P.PN ---
Subjective Progress Note Date: 09/09/18 Principal diagnosis: Traumatic left-sided rib fractures secondary to a fall 62-year-old male patient is well-known to me as the patient works as a x-ray tech here in the hospital. The patient was installing some light on a ladder and he fell and he landed on his left side and chest. He did not lose any consciousness. No dizziness. No altered mentation. No trauma to the head. He presented emergency department and a chest x-ray showed left-sided rib fractures in addition to left pleural thickening and effusion. CAT scan of the chest abdomen and pelvis was done and showed a comminuted fracture of the posterior left sided ribs 6 through ninth rib and there was also fractured within the fourth and the sixth rib laterally in addition to a very small left- sided pleural effusion probably hemothorax. No evidence of any pneumothorax. No abdominal findings on the CAT scan of the abdomen and pelvis. The patient is currently in intensive care unit. The patient using incentive spirometer. Pain scale is 3/10 and the patient is well-controlled on Mobile orally. He is using incentive spirometer. No hemoptysis. No pleurisy. There is a large bruise in his obtain interstitial over the left lateral chest area extending posteriorly inside of the trauma along with some swelling. Family is at the bedside. He has no complaints. On 09/09/2018 patient seen in follow-up on medical surgical floor, he is ambulating, in no acute distress, his pain controlled just by oral Mobile's, he is using his incentive spirometry, patient was noted to desaturate to 86 with brisk ambulation, but he quickly recovers into 90-94%, he is afebrile, repeat chest x-ray was reviewed by Dr. Oneal, showed left pleural effusion versus hemothorax with multiple left rib fractures. The hemothorax is small, does not require draining. His labs have been reviewed, CBC was unremarkable, BMP was unremarkable, urine analysis was negative. Patient will be given a prescription for portable oxygen on as-needed basis at 2 L per nasal cannula, no other acute issues, no specific complaints, patient has been cleared for discharge home today. Objective - Vital Signs Vital signs: Vital Signs Temp 97.4 F L 09/09/18 07:08 Pulse 68 09/09/18 07:08 Resp 16 09/09/18 07:08 BP 144/81 09/09/18 07:08 Pulse Ox 94 L 09/09/18 10:48 Intake & Output 09/08/18 09/09/18 09/09/18 18:59 06:59 18:59 Intake Total 1180 Output Total 175 Balance 1005 Weight 91.9 kg Intake: IV 1105 Sodium Chloride 0.9% 1, 1105 000 ml @ 75 mls/hr IV . [id number] CORRY Rx#:[id number] Intake, IV Titration 75 Amount Sodium Chloride 0.9% 1, 75 000 ml @ 75 mls/hr IV . [id number] [facility]RY Rx#:[id number] Output: Urine 175 Other: # Voids 1 - Exam General well developed, well nourished, no distress - Eyes PERRL, normal ocular movement - ENT no hearing loss - Neck no masses, no bruits - Respiratory Lungs sounds clear bilaterally but slightly diminished on the left side. Respirations even, nonlabored. Currently on 2 L nasal cannula oxygen saturation 97%. Able to achieve 1000 mL on his incentive spirometry. Left chest wall does appear slightly swollen. There is no paradoxical movement of the chest with inspiration or coughing. - Cardiovascular S1, S2 present. Regular rate and rhythm, sinus rhythm on telemetry. Palpable peripheral pulses bilaterally. No extremity edema present. No calf pain or tenderness noted. - Abdomen Abdomen: soft, non tender, bowel sounds - Genitourinary Deferred - Rectum Deferred - Integumentary Abrasions present to the left chest. There is also subcutaneous hematoma and swelling no rash, no growths - Neurologic normal coordination, normal sensation - Labs CBC & Chem 7: 09/09/18 09:15 09/09/18 09:15 Labs: Abnormal Lab Results - Last 24 Hours (Table) 09/09/18 Range/Units 09:15 Glucose 119 H (74-99) mg/dL Assessment and Plan Plan: Assessment: 1 traumatic left-sided rib fractures, secondary to a fall 2 traumatic small left-sided hemothorax 3 chest wall pain secondary to above 4 acute hypoxic respiratory failure secondary to above Plan: Continue encouraging deep breathing and coughing, incentive spirometry use, today's chest x-ray showed small stable hemothorax on the left. Pain is controlled with oral Mobile's, he was noted to be desaturating into the 86 range with brisk ambulation, however she quickly recovers. Patient is stable from pulmonary perspective for discharge home today, he'll discard given a prescription for portable oxygen on as-needed basis at 2 L/m. Follow-up in the outpatient clinic with Dr. Oneal. I performed a history & physical examination of the patient and discussed their management with my nurse practitioner, Ashleigh Peoples. I reviewed the nurse practitioner's note and agree with the documented findings and plan of care. Lung sounds are diminished. The findings and the impression was discussed with the patient. I attest to the documentation by the nurse practitioner. Time with Patient: Less than 30
== END 2018-09-09 14:22 | disposition home or self-care (01) | DRG 183 ==
LOC: EC 16:15 → 2SICU 19:09 → 4MS4W 09-08 21:45
PROVIDERS: ADMIT Surgery; ATTEND Surgery
DX: S22.42XA Multiple fractures of ribs, left side, initial encounter for closed fracture (principal); S27.1XXA Traumatic hemothorax, initial encounter; J96.01 Acute respiratory failure with hypoxia; W11.XXXA Fall on and from ladder, initial encounter; F17.201 Nicotine dependence, unspecified, in remission; Z79.82 Long term (current) use of aspirin; Z82.49 Family history of ischemic heart disease and other diseases of the circulatory system; Y93.89 Activity, other specified; Y92.008 Other place in unspecified non-institutional (private) residence as the place of occurrence of the external cause
CPT/HCPCS: 36415; 71045; 71260; 74177; 80048; 81003; 83735; 84100; 85025; 86850; 86900; 86901; 93005; 96361; 96374; 99285

== ENCOUNTER → 2018-09-17 | Outpatient (CLI) | payer MEDICAID ==
--- NOTE | 2018-09-17 12:44 | XR ---
EXAMINATION TYPE: XR chest 2V, XR ribs LT DATE OF EXAM: 09/17/2018 COMPARISON: Chest x-ray from 8 days ago and older studies. CT chest 10 days ago. HISTORY: Fall injury 10 days ago with left-sided flail chest TECHNIQUE: Frontal and lateral views of the chest are obtained. A frontal and oblique images of the left-sided ribs are acquired. FINDINGS: There is moderate-sized left-sided pleural fluid collection increased from prior with opal cent compressive atelectasis. Right lung is clear. No mediastinal shift is seen. Left heart border is silhouetted. Right upper rib congenital deformity or fusion is redemonstrated. Dedicated images the left-sided ribs redemonstrate acute/subacute displaced fractures involving later al left fourth through sixth ribs. Acute/subacute slightly displaced fractures involving posterior me dial left fifth and sixth ribs is redemonstrated. Acute/subacute displaced fractures involving mending carrier ior lateral left seventh through ninth ribs is redemonstrated. No new fractures are seen. IMPRESSION: 1. Moderate left-sided pleural fluid collection or hemothorax increased from prior no pneumothorax is noted. No distinct mediastinal shift is present. 2. Redemonstration of multiple slightly displaced left-sided rib fractures consistent with flail ches t. No significant change from CT where rib fractures are better seen.
== END ==
LOC: RADXRMAIN 12:13
PROVIDERS: ATTEND Family Medicine
DX: S22.42XA Multiple fractures of ribs, left side, initial encounter for closed fracture (principal)
CPT/HCPCS: 71046

== ENCOUNTER 2018-09-22 08:48 | Day surgery (SDC) | payer MEDICAID ==
[2018-09-22] MEDS ORDERED: ALPRAZolam 0.5 MG TAB PO STA (09:10)
[2018-09-22 09:47] VITALS: RESP 16; TEMP 98
[2018-09-22 09:53] LABS: Mean Platelet Volume 6.4
[2018-09-22 09:57] LABS: INR 0.9 (<1.2); Prothrombin Time 10.1 sec (9.0-12.0)
[2018-09-22] MEDS ORDERED: HYDROmorphone 1 MG/ML 1 ML SYRINGE IVP STA (09:58)
[2018-09-22 09:59] LABS: Platelet Count 520 k/uL (150-450)
--- NOTE | 2018-09-22 11:41 | XR ---
EXAMINATION TYPE: XR chest 1V portable DATE OF EXAM: 09/22/2018 COMPARISON: 09/17/2018 HISTORY: Status post left-sided thoracentesis TECHNIQUE: Single frontal view of the chest is obtained. FINDINGS: There is a moderate layering left pleural effusion, slightly smaller than the prior of with associated left basilar airspace disease. The previously seen left-sided posterior rib f ractures are better appreciated on the rib series. Old healed fracture deformities of the upper right ribs are noted. Blunting of the right costophrenic angle likely relates to trace pleural effusion. R emainder the right lung remains clear. Cardiomediastinal silhouette is obscured but overall stable. IMPRESSION: Slightly smaller left-sided overall moderate pleural effusion with associated airspace d isease, likely atelectasis. Probable trace pleural effusion blunting the costophrenic angle.
--- NOTE | 2018-09-22 12:01 | US ---
Ultrasound-guided therapeutic and diagnostic thoracentesis DATE OF EXAM: 09/22/2018 CLINICAL HISTORY: Left hemothorax The procedure was discussed with the patient. The risks, complications, benefits, and alternatives we re discussed and any questions were answered. Informed consent was obtained. Due to the displaced rib fractures as well as atelectatic patient to CT scan for thoracentesis. The patient was stable throughout the procedure and remained stable upon discharge from Department of Radiology. IMPRESSION: 1. Discontinued ultrasound thoracentesis.
[2018-09-22 12:55] VITALS: BP 121/74; PULSE 64
--- NOTE | 2018-09-22 13:12 | CT ---
EXAMINATION TYPE: CT guided thoracentesis DATE OF EXAM: 09/22/2018 COMPARISON: None HISTORY: Hemothorax LT LUNG CT DLP: 2250 mGycm Automated exposure control for dose reduction was used. FINDINGS: Procedure discussed with the patient. The risks, benefits, alternatives were discussed and any questi ons were answered. Informed consent was obtained. Patient was placed in the lateral position prepped and draped in usual sterile fashion. All elements of maximal barrier and sterile technique utilized. Following the application of local anesthesia a 5 [place] catheter was inserted into the left pleural space and there is removal of approximately 1200 cc of bloody serous fluid. No immediate postprocedural complication. The patient was stable throughout the procedure and stable upon discharge from the Department of radiology. IMPRESSION: SUCCESSFUL LEFT-SIDED CT GUIDED THORACENTESIS FOR HEMOTHORAX.
== END 2018-09-22 12:15 | disposition home or self-care (01) ==
LOC: RADPROMAIN 08:48
PROVIDERS: ATTEND Internal Medicine Critical Care Medicine
DX: J90 Pleural effusion, not elsewhere classified (principal)
CPT/HCPCS: 32555; 85049; 85610; 36415; 71045; 76604; J1170; 77012

== ENCOUNTER → 2018-11-04 | Outpatient (CLI) | payer MEDICAID ==
[2018-11-04 06:53] LABS: HCT 50.3 % (39.0-53.0); MCH 28.4 pg (25.0-35.0); MCV 88.6 fL (80.0-100.0); Mean Platelet Volume 6.8; Platelet Count 299 k/uL (150-450); RBC 5.68 m/uL (4.30-5.90); RDW 13.2 % (11.5-15.5); WBC 5.6 k/uL (3.8-10.6)
[2018-11-04 07:09] LABS: HGB 16.1 gm/dL (13.0-17.5)
[2018-11-04 07:15] LABS: Appearance,Urine Clear (Clear); Bilirubin,Urine Negative (Negative); Blood,Urine Negative (Negative); Color,Urine Light Yellow; Glucose,Urine (UA) Negative (Negative); Ketones,Urine Negative (Negative); Leukocyte Esterase,Urine Negative (Negative); Nitrite,Urine Negative (Negative); Protein,Urine Negative (Negative); Specific Gravity,Urine 1.007 (1.001-1.035); Urobilinogen,Urine <2.0 mg/dL (<2.0)
[2018-11-04 11:27] LABS: Albumin 4.3 g/dL (3.80-4.90); Albumin/Globulin Ratio 2.05 (1.20-2.10); Anion Gap 8.7 mmol/L (4.00-12.00); Calcium 9.1 mg/dL (8.7-10.3); Carbon Dioxide 27.3 mmol/L (21.6-31.8); Globulin 2.1 g/dL (1.6-3.3); LDL Cholesterol,Calculated 136.8 mg/dL (0.0-131.0); Potassium 4.8 mmol/L (3.5-5.5); Total Bilirubin 0.3 mg/dL (0.3-1.2); Total Protein 6.4 g/dL (6.2-8.2); VLDL Calculation 13.2 mg/dL (5.00-40.00)
== END | disposition home or self-care (01) ==
LOC: LABWHC1 06:35
PROVIDERS: ATTEND Family Medicine
DX: Z00.01 Encounter for general adult medical examination with abnormal findings (principal)
CPT/HCPCS: 36415; 80053; 80061; 81003; 84153; 85027

== ENCOUNTER → 2019-11-02 | Outpatient (CLI) | payer MEDICAID ==
[2019-11-02 07:12] LABS: HCT 51.7 % (39.0-53.0); HGB 16.4 gm/dL (13.0-17.5); MCH 28.8 pg (25.0-35.0); MCHC 31.7 g/dL (31.0-37.0); MCV 90.9 fL (80.0-100.0); Mean Platelet Volume 7.3; Platelet Count 288 k/uL (150-450); RBC 5.68 m/uL (4.30-5.90); RDW 12.4 % (11.5-15.5); WBC 5.5 k/uL (3.8-10.6)
[2019-11-02 18:13] LABS: African American GFR (CKD) 109.4 (60.0-200.0); Albumin 4.1 g/dL (3.80-4.90); Albumin/Globulin Ratio 2.28 (1.60-3.17); Anion Gap 7.9 mmol/L (4.00-12.00); BUN/Creat Ratio 23.75 Ratio (12.00-20.00); Calcium 8.8 mg/dL (8.7-10.3); Carbon Dioxide 27.1 mmol/L (21.6-31.8); Chol/HDL Ratio 3.62; Globulin 1.8 g/dL (1.6-3.3); LDL Cholesterol,Calculated 129.6 mg/dL (0.0-131.0); Non-African American GFR(CKD) 94.4 (60.0-200.0); Potassium 4.4 mmol/L (3.5-5.5); Total Bilirubin 0.4 mg/dL (0.2-1.2); Total Protein 5.9 g/dL (6.2-8.2); VLDL Calculation 14.4 mg/dL (5.00-40.00)
== END | disposition home or self-care (01) ==
LOC: LABWHC1 06:25
PROVIDERS: ATTEND Family Medicine
DX: Z00.01 Encounter for general adult medical examination with abnormal findings (principal)
CPT/HCPCS: 36415; 80053; 80061; 84153; 85027

== ENCOUNTER 2020-08-12 12:10 | Emergency (ER) | payer MEDICAID ==
[2020-08-12 12:14] VITALS: RESP 18; TEMP 97.8
[2020-08-12 13:21] VITALS: BP 149/91; PULSE 62
--- NOTE | 2020-08-12 13:33 | XR ---
EXAMINATION TYPE: XR chest 2V DATE OF EXAM: 08/12/2020 CLINICAL HISTORY: congestion cough. TECHNIQUE: Frontal and lateral view of the chest. COMPARISON: 01/06/2019 chest radiograph FINDINGS: Lungs are hyperinflated with flattening of the hemidiaphragms. The cardiomediastinal silho uette is within normal limits for size. Pulmonary vasculature is normal. There is no focal air space opacity, pleural effusion, or pneumothorax seen. Old healed rib fracture deformities. IMPRESSION: No acute cardiopulmonary process.
--- NOTE | 2020-08-12 13:35 | ED ---
URI HPI - General Chief Complaint: Upper Respiratory Infection Stated Complaint: wants COVID test Time Seen by Provider: 08/12/20 12:18 Source: patient Mode of arrival: ambulatory Limitations: no limitations - History of Present Illness Initial Comments: 64-year-old male presenting for congestion sinus pressure. Patient states that he has slight congestion and sinus pressure. He want be sure he did not have covid 19. admits to cough, denies fevers, SOB. Patient denies leg swelling chest pain or hemoptysis. Patient states he just wants testing and to go home. He is very pleasant and well appearing. - Related Data Home Medications Medication Instructions Recorded Confirmed Aspirin [Adult Low Dose Aspirin EC] 81 mg PO DAILY 12/09/16 09/22/18 Previous Rx's Medication Instructions Recorded Acetaminophen Tab [Tylenol] 650 mg PO Q4HR PRN tab 09/09/18 Docusate [Colace] 100 mg PO BID PRN #60 capsule 09/09/18 HYDROcodone/APAP 7.5-325MG [[place] 1 tab PO Q4H PRN 3 Days #18 tab 09/09/18 7.5-325] Allergies Allergy/AdvReac Type Severity Reaction Status Date / Time No Known Allergies Allergy Verified 08/12/20 12:14 Review of Systems ROS Statement: Those systems with pertinent positive or pertinent negative responses have been documented in the HPI. ROS Other: All systems not noted in ROS Statement are negative. Past Medical History Past Medical History: No Reported History Additional Past Medical History / Comment(s): fall, rib fx's History of Any Multi-Drug Resistant Organisms: None Reported Additional Past Surgical History / Comment(s): Had surgery at 2 yrs old because he swallowed a robertson. Past Anesthesia/Blood Transfusion Reactions: No Reported Reaction Past Psychological History: No Psychological Hx Reported Smoking Status: Former smoker Past Alcohol Use History: Occasional Past Drug Use History: None Reported - Past Family History Mother Additional Family Medical History / Comment(s): Heart Disease Father Additional Family Medical History / Comment(s): Heart Disease General Exam - General Exam Comments Initial Comments: General: The patient is awake and alert, in no distress Eye: Pupils are equal, round and reactive to light, extra-ocular movements are intact. No nystagmus. There is normal conjunctiva bilaterally. No signs of icterus. Cardiovascular: There is a regular rate and rhythm. No murmur, rub or gallop is appreciated. Respiratory: Lungs are clear to auscultation, respirations are non-labored, breath sounds are equal. No wheezes, stridor, rales, or rhonchi. Musculoskeletal: Normal ROM, no tenderness. Strength 5/5. Sensation intact. Radial pulses equal bilaterally 2+. Neurological: A&O x 3. CN II-XII intact grossly, There are no obvious motor or sensory deficits. Coordination appears grossly intact. Speech is normal. Skin: Skin is warm and dry and no rashes or lesions are noted. Psychiatric: Cooperative, appropriate mood & affect, normal judgment. Limitations: no limitations Course Vital Signs 08/12/20 08/12/20 08/12/20 12:11 12:50 13:14 Temperature 97.8 F Pulse Rate 66 62 Respiratory 18 18 18 Rate Blood Pressure 183/103 149/91 O2 Sat by Pulse 98 97 Oximetry Medical Decision Making - Medical Decision Making CXR clear. lungs clear. covid (-). pt appears nontoxic. BP improved. Is to f//u outpatient agreeable to discharge and hoem symptomatic treatment. Dr Carlson agreeable to care plan. - Lab Data Lab Results 08/12/20 Range/Units 12:47 Coronavirus (PCR) Not Detected (Not Detectd) Disposition Clinical Impression: Congestion of nasal sinus Disposition: HOME SELF-CARE Condition: Good Instructions (If sedation given, give patient instructions): Upper Respiratory Infection (ED) Additional Instructions: Please use medication as discussed. Please follow-up with family doctor in the next 2 days, Please return to emergency room if the symptoms increase or worsen or for any other concerns. Is patient prescribed a controlled substance at d/c from ED?: No Referrals: Srinivasa Braden MD [Primary Care Provider] - 1-2 days Time of Disposition: 13:35
== END 2020-08-12 13:55 | disposition home or self-care (01) ==
LOC: EC 12:10
DX: R09.81 Nasal congestion (principal); Z20.828 Contact with and (suspected) exposure to other viral communicable diseases; Z79.82 Long term (current) use of aspirin; Z87.891 Personal history of nicotine dependence
CPT/HCPCS: 71046; 87635; 99283

== ENCOUNTER → 2020-11-09 | Outpatient (CLI) | payer MEDICAID ==
[2020-11-09 11:17] LABS: HCT 50.2 % (39.6-50.0); HGB 15.8 g/dL (13.0-17.0); MCH 28.3 pg (27.0-32.0); MCHC 31.5 g/dL (32.0-37.0); Mean Platelet Volume 10.3 fL (9.5-12.2); Platelet Count 331 X 10*3/uL (140-440); RBC 5.58 X 10*6/uL (4.40-5.60); RDW 12.1 % (11.5-14.5); WBC 6.16 X 10*3/uL (4.50-10.00)
[2020-11-09 12:00] LABS: Chol/HDL Ratio 4.16; LDL Cholesterol,Calculated 145.6 mg/dL (0.0-131.0); VLDL Calculation 12.4 mg/dL (5.00-40.00)
[2020-11-09 12:08] LABS: PSA Annual Screen 1.9 ng/mL (0.0-4.0)
== END | disposition home or self-care (01) ==
LOC: LABWHC1 08:19
PROVIDERS: ATTEND Family Medicine
DX: Z00.01 Encounter for general adult medical examination with abnormal findings (principal)
CPT/HCPCS: 80061; 85027; 36415; G0103

== ENCOUNTER → 2021-11-13 | Outpatient (CLI) | payer MEDICAID ==
[2021-11-13 14:42] LABS: HCT 49.1 % (39.6-50.0); HGB 15.1 g/dL (13.0-17.0); MCHC 30.8 g/dL (32.0-37.0); MCV 91.1 fL (80.0-97.0); Mean Platelet Volume 10.3 fL (9.5-12.2); NRBC Per 100 WBC 0 /100 WBCS (0.0-0.0); Platelet Count 361 X 10*3/uL (140-440); RBC 5.39 X 10*6/uL (4.40-5.60); RDW 12.7 % (11.5-14.5); WBC 6.88 X 10*3/uL (4.50-10.00)
[2021-11-13 14:58] LABS: ALT 27 U/L (10-49); AST 27 U/L (14-35); Albumin 4.1 g/dL (3.8-4.9); Alkaline Phosphatase 120 U/L (41-126); BUN/Creat Ratio 19.44 Ratio (12.00-20.00); Blood Urea Nitrogen 14.5 mg/dL (9.0-27.0); Calcium 9.5 mg/dL (8.7-10.3); Carbon Dioxide 26.8 mmol/L (20.0-27.5); Chloride 104 mmol/L (96-109); Chol/HDL Ratio 3.88 Ratio; Glucose 90 mg/dL (70-110); LDL Cholesterol,Calculated 138.3 mg/dL (0.0-131.0); Non-African American GFR(CKD) 95.8 (60.0-200.0); Potassium 4.8 mmol/L (3.5-5.5); Sodium 143 mmol/L (135-145); Total Protein 7.1 g/dL (6.2-8.2); VLDL Calculation 13.78 mg/dL (5.00-40.00)
== END | disposition home or self-care (01) ==
LOC: LABWHC1 07:06
PROVIDERS: ATTEND Family Medicine
DX: Z00.01 Encounter for general adult medical examination with abnormal findings (principal)
CPT/HCPCS: 36415; 80053; 80061; 84153; 85027

== ENCOUNTER → 2022-06-16 | Outpatient (CLI) | payer MEDICAID, OTHER | END | disposition home or self-care (01) | LOC: LABMAIN 08:33 | PROVIDERS: ATTEND Internal Medicine Infectious Disease | DX: U07.1 COVID-19 (principal) | CPT/HCPCS: 87635 ==

== ENCOUNTER → 2023-11-26 | Outpatient (CLI) | payer MEDICAID ==
[2023-11-26 11:02] LABS: HCT 51.5 % (39.6-50.0); MCH 28.5 pg (27.0-32.0); MCHC 31.1 g/dL (32.0-37.0); MCV 91.6 FL (80.0-97.0); Mean Platelet Volume 10.6 FL (9.5-12.2); NRBC Per 100 WBC 0 X 10*3/uL (0.00-0.01); Platelet Count 308 X 10*3/uL (140-440); RBC 5.62 X 10*6/uL (4.40-5.60); RDW 12.8 % (11.5-14.5); WBC 8.49 X 10*3/uL (4.50-10.00)
[2023-11-26 11:27] LABS: BUN/Creat Ratio 27.14 Ratio (12.00-20.00); Carbon Dioxide 29.1 mmol/L (21.6-31.8); Chloride 105 mmol/L (96-109); Chol/HDL Ratio 4.22 Ratio; Glucose 93 mg/dL (70-110); LDL Cholesterol,Calculated 145.9 mg/dL (0.0-131.0); Sodium 143 mmol/L (135-145); VLDL Calculation 15.08 mg/dL (5.00-40.00)
[2023-11-26 11:28] LABS: ALT 34 U/L (10-49); AST 26 U/L (14-35); Albumin 4.3 g/dL (3.8-4.9); Albumin/Globulin Ratio 1.79 Ratio (1.60-3.17); Alkaline Phosphatase 123 U/L (41-126); Calcium 9.2 mg/dL (8.7-10.3); Globulin 2.4 g/dL (1.6-3.3); Total Bilirubin 0.2 mg/dL (0.3-1.2); Total Protein 6.7 g/dL (6.2-8.2)
== END | disposition home or self-care (01) ==
LOC: LABWHC1 06:43
PROVIDERS: ATTEND Family Medicine
DX: Z00.01 Encounter for general adult medical examination with abnormal findings (principal); Z12.5 Encounter for screening for malignant neoplasm of prostate
CPT/HCPCS: 80061; 80053; 85027; 36415; G0103

== ENCOUNTER → 2024-11-26 | Outpatient (CLI) | payer MEDICAID ==
[2024-11-26 11:04] LABS: MCH 29.5 pg (27.0-32.0); MCHC 32.7 g/dL (32.0-37.0); MCV 90.4 FL (80.0-97.0); Mean Platelet Volume 10.2 FL (9.5-12.2); NRBC Per 100 WBC 0 X 10*3/uL (0.00-0.01); Platelet Count 319 X 10*3/uL (140-440); RBC 5.42 X 10*6/uL (4.40-5.60); RDW 12.4 % (11.5-14.5); WBC 6.16 X 10*3/uL (4.50-10.00)
[2024-11-26 11:09] LABS: ALT 21 U/L (10-49); AST 24 U/L (14-35); Albumin 4.1 g/dL (3.8-4.9); Albumin/Globulin Ratio 1.71 Ratio (1.60-3.17); Alkaline Phosphatase 111 U/L (41-126); BUN/Creat Ratio 25.38 Ratio (12.00-20.00); Blood Urea Nitrogen 20.3 mg/dL (9.0-27.0); Calcium 9.2 mg/dL (8.7-10.3); Carbon Dioxide 28.8 mmol/L (21.6-31.8); Chloride 107 mmol/L (96-109); Chol/HDL Ratio 4.36 Ratio; Globulin 2.4 g/dL (1.6-3.3); Glucose 103 mg/dL (70-110); LDL Cholesterol,Calculated 146.7 mg/dL (0.0-131.0); Potassium 4.7 mmol/L (3.5-5.5); Prostate Specific Antigen 2.89 ng/mL (0.000-4.500); Sodium 144 mmol/L (135-145); Total Bilirubin 0.3 mg/dL (0.3-1.2); Total Protein 6.5 g/dL (6.2-8.2); VLDL Calculation 12.02 mg/dL (5.00-40.00)
== END | disposition home or self-care (01) ==
LOC: LABWHC1 07:11
PROVIDERS: ATTEND Family Medicine
DX: Z00.01 Encounter for general adult medical examination with abnormal findings (principal)
CPT/HCPCS: 36415; 80053; 80061; 84153; 85027